=== PATIENT | female | born 1980 | race Caucasian/White ===

== ENCOUNTER 2023-12-26 22:10 | Emergency (ER) | payer SELFPAY ==
[2023-12-26 22:16] VITALS: BP 164/114; PULSE 74; RESP 16; TEMP 36.6; O2SAT 99
--- NOTE | 2023-12-26 23:22 | ED_ITS ---
Documented by User: LEOPOLDO Snow 12/27/23 00:16 HPI - Headache General: Chief Complaint: Headache Stated Complaint: Migraine Time Seen by Provider: 12/26/23 23:20 History of Present Illness: 43-year-old female comes in today with c omplaints of migraine headache. Patient has a history of migraine headaches. Patient is without her routine abortive therapy Maxalt after moving to [place]. Patient has yet to establish care with primary care. Patient reports no other chronic medical problems. Related Data Previous Rx's Medication Instructions Recorded rizatriptan 10 mg tablet 10 mg PO Q2H PRN migraine headache 12/26/23 #10 tabs Allergies Allergy/AdvReac Type Severity Reaction Status Date / Time Sulfa (Sulfonamide Allergy ALGY-Rash Verified 12/26/23 22:21 Antibiotics) Review of Systems General: Reports: 10 or more systems reviewed and unremarkable except in HPI and below Neuro: Reports: headache(s) PFSH ED PFSH: Medical History (Updated 12/26/23 @ 23:26 by LEOPOLDO Snow) Psychiatric care Female Reproductive History: Date of last menstrual period: 12/16/23 Physical Exam Const: COMMON NORMALS: alert HENMT: COMMON NORMALS: normocephalic HEAD & SCALP: normocephalic Neck/C-Spine: COMMON NORMALS: full ROM Resp: COMMON NORMALS: normal respiratory effort Cardio: COMMON NORMALS: regular rate RATE: regular rate GI: COMMON NORMALS: non-tender Back/Pelvis: COMMON NORMALS: thoracic and lumbar spine normal to inspection Extremity: COMMON NORMALS: full ROM Neuro: SENSORIUM/ORIENTATION: Yes alert Skin: COMMON NORMALS: turgor normal GENERAL SKIN EXAM: turgor normal Course Vital Signs: Vital signs: Vital Signs Temperature 97.8 F 12/26/23 22:16 Pulse Rate 66 12/27/23 00:52 Respiratory Rate 16 12/27/23 00:52 Blood Pressure 109/75 12/27/23 00:52 Pulse Oximetry 98 12/27/23 00:52 Oxygen Delivery Me thod Room Air 12/27/23 00:20 MDM - Headache Medical Decision Making 43-year-old female comes in today for complaints of headache, migraine headache. Patient has a history of migraine headaches. On exam no focal neurodeficits are noted. Patient moves all extremities well. No signs of meningismus. Differential diagnosis includes not limited to migraine headache, tension headache, dehydration. Patient given a migraine headache cocktail including Reglan 10 mg, ketorolac 15 mg, diphenhydramine 12-1/2 mg, and dexamethasone 10 mg. Patient also has infused 250 mL of normal saline with medication. 0016, Patient had improvement of headache was discharged home with prescription for Maxalt. No radiology studies performed this visit Discharge Plan Discharge Patient Disposition: Home Clinical Impression: Migraine Qualifiers: Migraine type: unspecified Status migrainosus presence: without status migrainosus Intractability: not intractable Qualified Code(s): G43.909 - Migraine, unspecified, not intractable, without status migrainosus Condition: Stable Prescriptions: New rizatriptan 10 mg tablet 10 mg PO Q2H PRN (Reason: migraine headache) Qty: 10 0RF Rx Instructions: do not exceed 3 doses per 24 hrs Discharge Orders: Discharge ED (Routine); Ordered 12/27/23 Ordered By: Chadwick Arellano Discharge Diet: Usual diet Discharge Activity: Increase activity as tolerated Patient Instructions: Migraine Headache (ED) Activity Restrictions/Additional Instructions: Drink plenty of water and fluids. Medications as directed. Follow-up with primary care for further instructions. Coding Level of Care Code ED [employer] for [employer] Documented by User: Forrest Grigsby DO 12/27/23 01:54 HPI - Headache General: Chief Complaint: Headache Stated Complaint: Migraine Time Seen by Provider: 12/26/23 23:20 Related Data Previous Rx's Medication Instructions Recorded rizatriptan 10 mg tablet 10 mg PO Q2H PRN migraine headache 12/26/23 #10 tabs Allergies Allergy/AdvReac Type Severity Reaction Status Date / Time Sulfa (Sulfonamide Allergy ALGY-Rash Verified 12/26/23 22:21 Antibiotics) [facility] ED PFSH: Medical History (Updated 12/26/23 @ 23:26 by LEOPOLDO Snow) Psychiatric care Course Vital Signs: Vital signs: Vital Signs Temperature 97.8 F 12/26/23 22:16 Pulse Rate 66 12/27/23 00:52 Respiratory Rate 16 12/27/23 00:52 Blood Pressure 109/75 12/27/23 00:52 Pulse Oximetry 98 12/27/23 00:52 Oxygen Delivery Me thod Room Air 12/27/23 00:20 MDM - Headache Medical Decision Making 43-year-old female comes in today for complaints of headache, migraine headache. Patient has a history of migraine headaches. On exam no focal neurodeficits are noted. Patient moves all extremities well. No signs of meningismus. Differential diagnosis includes not limited to migraine headache, tension headache, dehydration. Patient given a migraine headache cocktail including Reglan 10 mg, ketorolac 15 mg, diphenhydramine 12-1/2 mg, and dexamethasone 10 mg. Patient also has infused 250 mL of normal saline with medication. 0016, Patient had improvement of headache was discharged home with prescription for Maxalt. This patient was originally seen by LEOPOLDO Marx.? I agree with his history, evaluation, and treatment. Discharge Plan Discharge Patient Disposition: Home Clinical Impression: Migraine Qualifiers: Migraine type: unspecified Status migrainosus presence: without status mi grainosus Intractability: not intractable Qualified Code(s): G43.909 - Migraine, unspecified, not intractable, without status migrainosus Condition: Stable Prescriptions: New rizatriptan 10 mg tablet 10 mg PO Q2H PRN (Reason: migraine headache) Qty: 10 0RF Rx Instructions: do not exceed 3 doses per 24 hrs Discharge Orders: Discharge ED (Routine); Ordered 12/27/23 Ordered By: Chadwick Arellano Discharge Diet: Usual diet Discharge Activity: Increase activity as tolerated Patient Instructions: Migraine Headache (ED) Activity Restrictions/Additional Instructions: Drink plenty of water and fluids. Medications as directed. Follow-up with primary care for further instructions. Coding Level of Care Code ED [employer] for [employer]
[2023-12-26] MEDS: sodium chloride 0.9% 250 ML IV (23:52)
[2023-12-26] MEDS: metoclopramide 5 mg/mL SDV 2 mL 10 MG IVP (23:54)
[2023-12-26] MEDS: ketorolac 30 mg/mL INJ 15 MG IVP (23:54)
[2023-12-26] MEDS: dexamethasone 10 mg/mL INJ IVP (23:54)
[2023-12-26] MEDS: diphenhydrAMINE 50 mg/mL SDV 1mL 12.5 MG IVP (23:54)
[2023-12-27 00:20] VITALS: BP 109/75; PULSE 66; RESP 16; O2SAT 98
[2023-12-27 00:52] VITALS: BP 109/75; PULSE 66; RESP 16; O2SAT 98
== END 2023-12-27 00:56 | disposition home or self-care (01) ==
PROVIDERS: Emergency Provider Nurse Practitioner Family
DX: G43.909 Migraine, unspecified, not intractable, without status migrainosus (principal)
CPT/HCPCS: 96361; 96374; 96375; 99284; J1100; J1200; J1885; J2765; J7050

== ENCOUNTER → 2024-02-26 15:56 | Outpatient (BNVA) | payer BC, SELFPAY | PROVIDERS: Visit Provider Emergency Medicine | DX: R39.9 Unspecified symptoms and signs involving the genitourinary system (principal) | CPT/HCPCS: 81000 ==

== ENCOUNTER → 2024-12-27 17:39 | Outpatient (BNVA) | payer OTHER, BC, SELFPAY | PROVIDERS: Visit Provider Nurse Practitioner | DX: J02.9 Acute pharyngitis, unspecified (principal) | CPT/HCPCS: 87880 ==

== ENCOUNTER → 2025-03-05 17:20 | Outpatient (BNVA) | payer OTHER, BC, SELFPAY | PROVIDERS: Visit Provider Family Medicine | DX: R05.9 Cough, unspecified (principal) | CPT/HCPCS: 87400; 87426 ==